=== PATIENT | male | born 1940 | race Caucasian/White ===

== ENCOUNTER → 2020-09-08 | Outpatient (CLI) ==
[~2020-09-08] MED LIST: ASPI81CH33 PO; OMEP-221 PO; PANT40TA29 PO; SIMV20TA22 PO; TAMS1CAP17 PO; VITA200031 PO
== END ==
LOC: M LABSMTC 10:48
PROVIDERS: ATTEND Anesthesiology
DX: Z11.52 Encounter for screening for COVID-19 (principal)

== ENCOUNTER 2020-09-13 06:10 | Day surgery (SDC) | payer MEDICARE ==
[~2020-09-13] VITALS: Ht 172.7 cm; Wt 87.9 kg
[2020-09-13] MEDS ORDERED: ceFAZolin SOD 2 GM in IV 1 EA IV ONE (07:00)
[2020-09-13] MEDS ORDERED: LR 1,000 ML IV ONE (07:00)
[2020-09-13] MEDS ORDERED: BUPIVACAINE HCL 0.25% 10ML VIAL As Ordered ONE (07:12)
[2020-09-13] MEDS ORDERED: BUPIVACAINE/EPIN 0.25% 30 ML VIAL As Ordered ONE ×2 (07:12→07:14)
[2020-09-13] MEDS ORDERED: BUPIVACAINE LIPOSOME/PF 1.3% 20ML VIAL (13.3MG/ML)(EXPAREL)(C9290 PER1MG) As Ordered ONE (07:12)
[2020-09-13] MEDS ORDERED: LIDOCAINE 2% 100MG/5ML SDV (FOR ANES.) As Ordered ONE (07:50)
[2020-09-13] MEDS ORDERED: ONDANSETRON 4MG/2ML VIAL As Ordered ONE (07:50)
[2020-09-13] MEDS ORDERED: fentaNYL 250 MCG/5 ML INJECTION (J3010) As Ordered ONE (07:50)
[2020-09-13] MEDS ORDERED: dexameTHASONE 4 MG/ML 1ML VIAL (J1100 PER 1MG) As Ordered ONE (07:50)
[2020-09-13] MEDS ORDERED: propofoL 200 MG/20 ML VIAL As Ordered ONE (07:50)
[2020-09-13] MEDS ORDERED: ROCURONIUM BROMIDE 50 MG/5 ML VIAL As Ordered ONE ×2 (07:50→08:46)
[2020-09-13] MEDS ORDERED: SUGAMMADEX SODIUM 500 MG/5 ML VIAL (BRIDION) As Ordered ONE (08:13)
[2020-09-13] MEDS ORDERED: ACETAMINOPHEN 1000MG 100ML IV BTL (OFIRMEV) (J0131 PER 10MG) As Ordered ONE (08:23)
[2020-09-13] MEDS ORDERED: KETOROLAC 60MG 2ML VIAL As Ordered ONE (08:24)
[2020-09-13] MEDS ORDERED: fentaNYL 100 MCG/2 ML INJECTION (J3010) IV PRN (09:35)
[2020-09-13] MEDS ORDERED: LR 1,000 ML IV SCH (09:35)
[2020-09-13] MEDS ORDERED: NORCO, ANEXSIA 5/325MG TABLET (HYDROcodone/ACETAMINOPHEN) PO PRN (09:35)
[2020-09-13] MEDS ORDERED: MEPERIDINE INJ 25 MG/ML VIAL (J2175) IV PRN (09:35)
[2020-09-13] MEDS ORDERED: ONDANSETRON 4MG/2ML VIAL IV PRN (09:35)
[2020-09-13] MEDS ORDERED: oxyCODONE 5MG TAB PO PRN (09:35)
[2020-09-13] MEDS ORDERED: METOCLOPRAMIDE INJ 10MG/2ML VIAL (J2765 PER 1) IV PRN (09:35)
--- NOTE | 2020-09-13 11:11 | RO ---
OPERATIVE NOTE DATE OF OPERATION: 09/13/2020 PREOPERATIVE DIAGNOSIS: Recurrent incisional hernias at the umbilicus. POSTOPERATIVE DIAGNOSIS: Recurrent incisional hernias at the umbilicus. PROCEDURE: Robotic-assisted laparoscopic umbilical hernia repair with Parietex mesh. SURGEON: Andrew Pandey Jr., MD. DIE FINISHER FORGING: Farzaneh Cabrera (provided retraction, trocar placement, trocar closure, and mesh placement). ANESTHESIA: General endotracheal anesthesia. EBL: Minimal. FLUIDS: Crystalloid. BRIEF PROCEDURE SUMMARY: The patient was brought to the operating room and was given general anesthesia. After adequate anesthesia and preoperative antibiotics were given, the patient was prepped and draped in the sterile fashion. Next, a left subcostal incision was made with a skin knife. Blunt dissection was carried down to fascia. Veress needle placed into the abdominal cavity and insufflated to 15 mm of pressure, and a dilating 8 mm trocar was placed. Two additional left-sided 8 mm trocars were placed under direct visualization. There was some small bowel that was adherent to the posterior aspect of the hernia repair. This was able to be taken down nicely with sharp dissection. I stayed on the mesh itself and was able to be dissected off completely. The fascial defect was actually two fascial defects close to each other which were closed in a transverse manner given that they were lying in a transverse manner, and placing the abdominal pressures down to 8 mm of pressure, I was able to close this in a transverse manner using a 0 Stratafix in a running manner x2, and then using a 12 cm Parietex round mesh, this was placed over the top of the repair suturing this in place with a 2-0 V-Loc. Abdomen was desufflated under direct visualization, and all trocars were removed under direct visualization. 4-0 Vicryl was used to close the skin incision. Steri-Strips and a dry sterile dressing were applied. The patient was awakened from his anesthesia and brought to the recovery room awake, alert, and hemodynamically stable. Sponge and needle counts correct x2.
[2020-09-13] MEDS ORDERED: traMADol 50 MG TAB PO PRN (11:20)
== END 2020-09-13 13:00 | disposition home or self-care (01) ==
LOC: M SDC 06:10 → EDUNIT# 07:30 → M SDC 13:00
PROVIDERS: ATTEND Surgery
DX: K40.91 Unilateral inguinal hernia, without obstruction or gangrene, recurrent (principal); M51.9 Unspecified thoracic, thoracolumbar and lumbosacral intervertebral disc disorder; M19.011 Primary osteoarthritis, right shoulder; M19.012 Primary osteoarthritis, left shoulder; R01.1 Cardiac murmur, unspecified; I35.9 Nonrheumatic aortic valve disorder, unspecified; Z87.442 Personal history of urinary calculi; Z85.46 Personal history of malignant neoplasm of prostate; Z92.3 Personal history of irradiation; Z79.899 Other long term (current) drug therapy; Z79.82 Long term (current) use of aspirin
CPT/HCPCS: 49654; C1781; C9290; J0131; J0690; J1100; J1885; J2405; J3010; S2900

== ENCOUNTER → 2020-11-20 | Outpatient (CLI) | payer MEDICARE ==
[~2020-11-20] MED LIST changes: +GASTROGRAFIN SOLUTION 30ML (Q9963) As Ordered ONE; +ISOVUE-370 76% 100ML VIAL As Ordered ONE
--- NOTE | 2020-11-20 16:22 | REP ---
INDICATION: INTRA ABD AND PELVIC SWELLING, MASS AND LUMP. COMPARISON: None. TECHNIQUE: Standard helical technique after the intravenous administration of 100 cc Isovue 370 and oral bowel preparatory contrast administration. FINDINGS: The lung bases are clear. Minimal subsegmental atelectatic change is seen in the inferior right middle lobe. The liver and spleen are within normal limits. There is a calcification seen within a contracted gallbladder. The pancreas and adrenal glands are within normal limits. Seen arising from the superior pole of the right kidney there is a round 6.7 cm sized rim calcified low-density structure which has higher than water density Hounsfield unit readings. There is no perceivable contrast-enhancement. The abdominal aorta and para-aortic regions are within normal limits. The bowel loops and the mesenteries are within normal limits. There is no evidence of free fluid or free air. Seen in the supraumbilical anterior abdominal wall subcutanea there is an oval-shaped 5.32 x 3.5 by 4 cm sized low-density structure which has slightly higher than water density Hounsfield unit readings and shows no evidence of perceivable contrast-enhancement. Bone window technique throughout the examination shows the osseous structures to be within normal limits for the patient's age. Spinal, hip, and sacroiliac joint degenerative changes are present. IMPRESSION: 1. There is a Bosniak class 2 F right renal cyst. Six-month follow-up is recommended. 2. There is an oval-shaped fluid containing structure in the anterior abdominal wall subcutaneous fat as described above the etiology of which is uncertain. 3. There is a cholelith within a contracted gallbladder. <Electronically signed by Roberto Granda > 11/20/20 0781
== END ==
LOC: M RAD 13:32
PROVIDERS: ATTEND Surgery
DX: R19.00 Intra-abdominal and pelvic swelling, mass and lump, unspecified site (principal); N28.1 Cyst of kidney, acquired; K81.9 Cholecystitis, unspecified
CPT/HCPCS: 74177; Q9963; Q9967

== ENCOUNTER → 2023-08-19 | Outpatient (CLI) | payer MEDICARE ==
[~2023-08-19] MED LIST changes: -GASTROGRAFIN SOLUTION 30ML (Q9963) As Ordered ONE; -ISOVUE-370 76% 100ML VIAL As Ordered ONE; -OMEP-221 PO; +OMEP40CA5 PO
== END ==
LOC: M EKG 15:00
PROVIDERS: ATTEND Physician Assistant
DX: I49.5 Sick sinus syndrome (principal)

== ENCOUNTER → 2024-02-29 | Outpatient (CLI) | payer MEDICARE | LOC: M EKG 15:33 | PROVIDERS: ATTEND Physician Assistant | DX: I45.3 Trifascicular block (principal) ==

== ENCOUNTER → 2024-03-09 | Outpatient (CLI) | payer MEDICARE | LOC: M PLAIMG 13:48 | PROVIDERS: ATTEND Physician Assistant | DX: I35.0 Nonrheumatic aortic (valve) stenosis (principal) ==

== ENCOUNTER → 2024-10-19 | Outpatient (CLI) | payer MEDICARE ==
[2024-10-19 13:50] LABS: HEMATOCRIT 38.9 % (42.0-52.0); HEMOGLOBIN 12.8 g/dl (13.5-17.5); MEAN CORPUSCULAR HEMOGLOBIN 30.3 pg (27.0-33.0); MEAN CORPUSCULAR HGB CONC 32.9 g/dl (32.0-36.5); PLATELET COUNT, AUTOMATED 200 10^3/uL (150-450); RED BLOOD COUNT 4.23 10^6/uL (4.30-6.10); WHITE BLOOD COUNT 4.9 10^3/uL (4.0-10.0)
[2024-10-19 14:21] LABS: CALCIUM LEVEL 9.5 MG/DL (8.3-10.6); CREATININE FOR GFR 0.93 MG/DL (0.70-1.30); GLOMERULAR FILTRATION RATE 80.5 (>35); POTASSIUM SERUM 4.4 MMOL/L (3.5-5.1)
== END ==
LOC: M LAB 13:22
PROVIDERS: ATTEND Physician Assistant
DX: I35.0 Nonrheumatic aortic (valve) stenosis (principal); I50.32 Chronic diastolic (congestive) heart failure